=== PATIENT | male | born 1940 | race Caucasian/White ===

== ENCOUNTER → 2018-09-26 | Outpatient (CLI) | payer MEDICARE, OTHER ==
[~2018-09-26] MED LIST: ACET325T21 PO; AMIO200T42 PO; APIX5TAB PO; ASCO100019 PO; ASCO10004 PO; ASPI-621 PO; CARV-39 PO; CARV6.252 PO; CEPH-367 PO; CYAN1TAB39 PO; FURO40TA6 PO; GINK120C PO; GINKO BILOBA PO; GLIM4TAB PO; GLIM4TAB2 PO; GLYB5TAB3 PO; INSU100I28 SQ-INSULIN; INSU100V13 SC; ISOS10TA2 PO; LEVO25TA2 PO; LISI-167 PO; METF10002 PO; MOVE FREE ULTR1 EACH PO; MULT-717 PO; MULT-751 PO; MV-M1TAB35 PO; POTA20TA14 PO; POTA20TA6 PO; PRAV40TA2 PO; PYRI100T2 PO; PYRI100T4 PO; TORS20TA PO; TORS20TA2 PO; UBIQ100C3 PO; VIT1CAPS10 PO; VIT1TAB.9 PO; VITA1TAB68 PO; Will bring list DOS; [UNRECOGNIZED DRUG - CODE] PO
== END | disposition home or self-care (01) ==
LOC: CVU 14:40
PROVIDERS: ATTEND Internal Medicine Cardiovascular Disease
DX: I08.1 Rheumatic disorders of both mitral and tricuspid valves (principal); E78.5 Hyperlipidemia, unspecified; I25.2 Old myocardial infarction; E11.9 Type 2 diabetes mellitus without complications; I11.0 Hypertensive heart disease with heart failure; I50.9 Heart failure, unspecified
CPT/HCPCS: 93306

== ENCOUNTER 2019-01-09 15:02 | Inpatient (IN) | payer MEDICARE, OTHER ==
[~2019-01-09] VITALS: Ht 175.3 cm; Wt 84.2 kg
[~2019-01-09 15:02] MED LIST changes: -ASPI-621 PO; +ASPI81TA45 PO; +OCUVITE SOFTGE1 EACH PO; -VIT1CAPS10 PO
[2019-01-09 15:36] LABS: ALBUMIN 3.1 g/dL (3.4-5.0); ANION GAP 4 mmol/L (5-15); BASOPHILS # (AUTO) 0.07 x10^3/uL (0-0.1); BASOPHILS % (AUTO) 1 % (0-1); CALCIUM 9.6 mg/dL (8.5-10.1); CHLORIDE 107 mmol/L (98-107); EOSINOPHILS # (AUTO) 0.17 x10^3/uL (0-0.4); EOSINOPHILS % (AUTO) 1 % (1-7); LYMPHOCYTES # (AUTO) 2.94 x10^3/uL (1-3.4); LYMPHOCYTES % (AUTO) 20 % (22-44); MD NO; MEAN CORPUSCULAR HEMOGLOBIN 31.9 pg (27.5-34.5); MEAN CORPUSCULAR HGB CONC 32.5 g/dL (33.2-36.2); MEAN CORPUSCULAR VOLUME 98.3 fL (81-97); MEAN PLATELET VOLUME 8.4 fL (7.4-10.4); MONOCYTES # (AUTO) 0.74 x10^3/uL (0.2-0.8); MONOCYTES % (AUTO) 5 % (2-9); NEUTROPHILS # (AUTO) 10.71 x10^3/uL (1.8-6.8); NEUTROPHILS % (AUTO) 73 % (42-75); PLATELET COUNT 200 x10^3/uL (130-400); RED BLOOD COUNT 4.63 x10^6/uL (4.38-5.82); RED CELL DISTRIBUTION WIDTH 17.1 % (9.4-14.8)
[2019-01-09 15:40] LABS: ALANINE AMINOTRANSFERASE 45 U/L (12-78); ALKALINE PHOSPHATASE 105 U/L (45-117); BILIRUBIN,TOTAL 0.9 mg/dL (0.2-1.0); CREATININE 1.35 mg/dL (0.7-1.3); TOTAL PROTEIN 6.6 g/dL (6.4-8.2)
--- NOTE | 2019-01-09 17:00 | NUR ---
PT NOTED TO HAVE WOUNDS WITH ESCAR BILATERAL HEELS. PT WEARING PADED BOOTS. NOTED TO HAVE A WOUND ON EACH BUTTOCK WITH A DRESSING IN PLACE. PT STATES HE HAS A NURSE THAT COMES TO HIS HOUSE AND CLEANS AND DRESSES WOUNDS. PILLOW PLACED UNDER RIGHT HIP TO TAKE PRESSURE OFF BUTTOCKS
[2019-01-09 18:04] LABS: MICROSCOPIC NOT IND
[2019-01-09 18:08] LABS: CULTURE INDICATED? NO
--- NOTE | 2019-01-09 19:49 | NUR ---
PILLOW CHANGED TO UNDER LEFT SIDE. PT USED URINAL AND THEN BACK TO RESTING. AWAITING ROOM ASSIGNMENT
[2019-01-09] MEDS ORDERED: SODIUM CHLORIDE 0.9% 1,000 ML IV ONE (19:55)
--- NOTE | 2019-01-09 20:50 | NUR ---
REPORT TO [facility]. HOSPITALIST AT BEDSIDE Addendum: 01/09/19 at 2050 by [facility] BED REQUESTED. ERROR ENTRY THAT HOSPITALIST AT BEDSIDE. [place] IN [facility] [place] SNA[place]
--- NOTE | 2019-01-09 21:20 | NUR ---
REPORT RECEIVED FROM [facility].
--- NOTE | 2019-01-09 22:21 | NUR ---
report given to lucas paz.
[2019-01-09 22:53] VITALS: BP 126/77
[2019-01-09] MEDS ORDERED: TORS20TA2 PO (23:36)
[2019-01-10] MEDS: APIXABAN 5 MG TABLET PO SCH ×3 (01:00→20:23)
[2019-01-10] MEDS: AMIODARONE 200 MG TABLET PO SCH ×3 (01:00→20:21)
[2019-01-10] MEDS: ISOSORBIDE DINITRATE 10 MG TABLET PO SCH ×4 (01:01→20:22)
[2019-01-10] MEDS: PRAVASTATIN 40 MG TABLET PO SCH ×2 (01:01→20:20)
[2019-01-10] MEDS: MEXILETINE 150 MG CAPSULE PO SCH ×3 (02:22→18:01)
[2019-01-10 03:10] VITALS: BP 115/70
[2019-01-10] MEDS: CARVEDILOL 25 MG TABLET PO SCH ×2 (06:42→18:02)
[2019-01-10] MEDS: LEVOTHYROXINE 75 MCG TABLET PO SCH (06:42)
[2019-01-10] MEDS: TORSEMIDE 20 MG TABLET PO SCH ×2 (08:29→20:23)
[2019-01-10] MEDS: GLIMEPIRIDE 4 MG TABLET PO SCH ×3 (08:29→20:22)
[2019-01-10] MEDS: POTASSIUM CHLORIDE 20 MEQ TAB.ER.PRT PO SCH ×3 (08:29→20:22)
[2019-01-10] MEDS: INSULIN LISPRO 100 UNITS/ML, PEN SQ-INSULIN SCH ×4 (08:29→20:24)
[2019-01-10] MEDS: LISINOPRIL 10 MG TABLET PO SCH (08:31)
[2019-01-10 08:40] VITALS: BP 111/69
[2019-01-10] MEDS: INSULIN GLARGINE 100 UNITS/ML, PEN SQ-INSULIN SCH (09:36)
[2019-01-10 15:08] VITALS: BP 113/68
[2019-01-10] MEDS ORDERED: DOCUSATE 100 MG CAPSULE PO PRN (17:30)
[2019-01-10] MEDS: BISACODYL 10 MG SUPP PR PRN (18:02)
[2019-01-10 18:48] VITALS: BP 161/83
[2019-01-10] MEDS: ACETAMINOPHEN 325 MG TABLET PO PRN (20:26)
[2019-01-10] MEDS: ZOLPIDEM 5MG TABLET PO PRN (21:35)
[2019-01-11] VITALS (9 sets, daily range): BP systolic 141–168; BP diastolic 77–95
[2019-01-11] MEDS: MEXILETINE 150 MG CAPSULE PO SCH ×5 (00:46→20:57)
[2019-01-11] MEDS: ACETAMINOPHEN 325 MG TABLET PO PRN ×2 (00:51→10:21)
[2019-01-11 01:44] LABS: TROPONIN I 0.059 ng/mL (0.000-0.045)
[2019-01-11] MEDS ORDERED: NITROGLYCERIN 0.4 MG/SPRAY SL PRN (04:30)
[2019-01-11] MEDS ORDERED: NITROGLYCERIN 0.4 MG BOTTLE (25 TABS) SL PRN (04:30)
[2019-01-11] MEDS: CARVEDILOL 25 MG TABLET PO SCH ×2 (05:41→16:09)
[2019-01-11] MEDS: LEVOTHYROXINE 75 MCG TABLET PO SCH (05:41)
[2019-01-11 06:01] LABS: TROPONIN I 0.094 ng/mL (0.000-0.045)
[2019-01-11 06:45] LABS: ALANINE AMINOTRANSFERASE 60 U/L (12-78); ANION GAP 8 mmol/L (5-15); CALCIUM 9.2 mg/dL (8.5-10.1); CHLORIDE 109 mmol/L (98-107); CREATININE 1.38 mg/dL (0.7-1.3)
[2019-01-11 06:48] LABS: ALKALINE PHOSPHATASE 105 U/L (45-117); BILIRUBIN,TOTAL 1.1 mg/dL (0.2-1.0); TOTAL PROTEIN 6.7 g/dL (6.4-8.2)
[2019-01-11] MEDS: INSULIN LISPRO 100 UNITS/ML, PEN SQ-INSULIN SCH ×4 (07:00→19:56)
[2019-01-11 07:57] LABS: TROPONIN I 0.084 ng/mL (0.000-0.045)
[2019-01-11] MEDS ORDERED: PANTOPRAZOLE 40 MG IV IVPush SCH (08:30)
[2019-01-11] MEDS: ONDANSETRON ODT 4 MG PO PRN ×3 (08:33→19:52)
[2019-01-11] MEDS: INSULIN GLARGINE 100 UNITS/ML, PEN SQ-INSULIN SCH (09:00)
[2019-01-11] MEDS ORDERED: POTASSIUM CHLORIDE 20 MEQ TAB.ER.PRT PO SCH (09:00)
[2019-01-11] MEDS: POTASSIUM CHLORIDE 30 MEQ in SODIUM CHLORIDE 0.45% 1,000 ML IV SCH ×2 (09:07→17:44)
[2019-01-11] MEDS: TORSEMIDE 20 MG TABLET PO SCH ×2 (10:16→20:56)
[2019-01-11] MEDS: AMIODARONE 200 MG TABLET PO SCH ×2 (10:16→20:56)
[2019-01-11] MEDS: ISOSORBIDE DINITRATE 10 MG TABLET PO SCH ×3 (10:16→20:57)
[2019-01-11] MEDS: APIXABAN 5 MG TABLET PO SCH ×2 (10:16→20:57)
[2019-01-11] MEDS: LISINOPRIL 10 MG TABLET PO SCH (10:20)
[2019-01-11 13:20] LABS: TROPONIN I 0.099 ng/mL (0.000-0.045)
[2019-01-11] MEDS: PANTOPROZOLE 40MG TABLET PO SCH (16:14)
[2019-01-11] MEDS: MAGNESIUM CITRATE 300ML ORAL SOL PO PRN ×2 (16:58→21:58)
[2019-01-11] MEDS: PRAVASTATIN 40 MG TABLET PO SCH (20:57)
[2019-01-11] MEDS: ZOLPIDEM 5MG TABLET PO PRN (23:01)
[2019-01-12] VITALS (11 sets, daily range): BP systolic 86–120; BP diastolic 31–90
[2019-01-12] MEDS: POTASSIUM CHLORIDE 30 MEQ in SODIUM CHLORIDE 0.45% 1,000 ML IV SCH ×2 (03:50→14:23)
[2019-01-12] MEDS: CARVEDILOL 25 MG TABLET PO SCH (05:27)
[2019-01-12] MEDS: MEXILETINE 150 MG CAPSULE PO SCH ×3 (05:27→22:32)
[2019-01-12] MEDS: PANTOPROZOLE 40MG TABLET PO SCH (05:27)
[2019-01-12] MEDS: LEVOTHYROXINE 75 MCG TABLET PO SCH (05:27)
[2019-01-12 06:14] LABS: MEAN CORPUSCULAR HEMOGLOBIN 32.7 pg (27.5-34.5); MEAN CORPUSCULAR HGB CONC 33.2 g/dL (33.2-36.2); MEAN CORPUSCULAR VOLUME 98.3 fL (81-97); MEAN PLATELET VOLUME 8.2 fL (7.4-10.4); PLATELET COUNT 159 x10^3/uL (130-400); RED BLOOD COUNT 4.11 x10^6/uL (4.38-5.82); RED CELL DISTRIBUTION WIDTH 16.9 % (9.4-14.8)
[2019-01-12 06:16] LABS: ALANINE AMINOTRANSFERASE 388 U/L (12-78); ALBUMIN 2.4 g/dL (3.4-5.0); ANION GAP 5 mmol/L (5-15); CHLORIDE 108 mmol/L (98-107); CREATININE 1.38 mg/dL (0.7-1.3)
[2019-01-12 06:18] LABS: ALKALINE PHOSPHATASE 249 U/L (45-117); BILIRUBIN,TOTAL 4.3 mg/dL (0.2-1.0); TOTAL PROTEIN 5.7 g/dL (6.4-8.2)
[2019-01-12 06:42] LABS: MD YES
[2019-01-12 06:43] LABS: MONOS#(MANUAL) 1.04 x10^3/uL (0.3-2.7); MONOS% (MANUAL) 4 % (2-9)
[2019-01-12 06:44] LABS: <PLATELET ESTIMATE> ADEQUATE; <PLT MORPHOLOGY> NORMAL PLT MORPH; <RBC MORPHOLOGY> NORMAL; BAND#(MANUAL) 0.26 x10^3/uL; BANDS%(MANUAL) 1 % (0-7); LYMPHS% (MANUAL) 15 % (22-44); SEGS% (MANUAL) 80 % (42-75)
[2019-01-12] MEDS: INSULIN GLARGINE 100 UNITS/ML, PEN SQ-INSULIN SCH (09:27)
[2019-01-12] MEDS: INSULIN LISPRO 100 UNITS/ML, PEN SQ-INSULIN SCH ×4 (09:28→20:54)
[2019-01-12] MEDS: AMIODARONE 200 MG TABLET PO SCH ×2 (09:29→20:53)
[2019-01-12] MEDS: ISOSORBIDE DINITRATE 10 MG TABLET PO SCH (09:29)
[2019-01-12] MEDS: APIXABAN 5 MG TABLET PO SCH ×2 (09:30→20:53)
[2019-01-12] MEDS: TORSEMIDE 20 MG TABLET PO SCH (09:30)
[2019-01-12] MEDS: LISINOPRIL 10 MG TABLET PO SCH (09:31)
[2019-01-12] MEDS: BISACODYL 10 MG SUPP PR PRN (14:23)
[2019-01-12] MEDS ORDERED: SODIUM CHLORIDE 0.9%, 500ML IVBOLUS ONE (15:00)
[2019-01-12] MEDS ORDERED: CEFTRIAXONE PMX 2GM/50ML 50 ML IV SCH (18:00)
[2019-01-12] MEDS ORDERED: CARVEDILOL 25 MG TABLET PO SCH (18:00)
[2019-01-12] MEDS: PRAVASTATIN 40 MG TABLET PO SCH (20:52)
[2019-01-12 22:05] LABS: CULTURE INDICATED? YES; MICROSCOPIC INDICATED
[2019-01-13 00:08] VITALS: BP 120/90
[2019-01-13] MEDS: ACETAMINOPHEN 325 MG TABLET PO PRN (00:14)
[2019-01-13] MEDS ORDERED: ISOSORBIDE DINITRATE 10 MG TABLET PO SCH (09:00)
[2019-01-13] MEDS ORDERED: LISINOPRIL 5 MG TABLET PO SCH ×2 (09:00)
== END 2019-01-13 02:02 | disposition expired | DRG 444 ==
LOC: ED 16:25 → EDIP 19:55 → 4NOR 22:51 → 5SO 01-11 04:09
PROVIDERS: ADMIT Internal Medicine; ATTEND Internal Medicine
PROC: 0T9B70Z Drainage of Bladder with Drainage Device, Via Natural or Artificial Opening (ICD-10-PCS; principal; 2019-01-12)
DX: K81.0 Acute cholecystitis (principal); R53.2 Functional quadriplegia; I42.9 Cardiomyopathy, unspecified; I47.2 Ventricular tachycardia; I50.9 Heart failure, unspecified; D63.8 Anemia in other chronic diseases classified elsewhere; E03.9 Hypothyroidism, unspecified; E11.42 Type 2 diabetes mellitus with diabetic polyneuropathy; E11.65 Type 2 diabetes mellitus with hyperglycemia; E78.5 Hyperlipidemia, unspecified; E87.6 Hypokalemia; I11.0 Hypertensive heart disease with heart failure; I25.10 Atherosclerotic heart disease of native coronary artery without angina pectoris; I48.0 Paroxysmal atrial fibrillation; L89.322 Pressure ulcer of left buttock, stage 2; L89.312 Pressure ulcer of right buttock, stage 2; L89.620 Pressure ulcer of left heel, unstageable; L89.610 Pressure ulcer of right heel, unstageable; K59.00 Constipation, unspecified; N28.9 Disorder of kidney and ureter, unspecified; N40.0 Benign prostatic hyperplasia without lower urinary tract symptoms; I46.9 Cardiac arrest, cause unspecified; R62.7 Adult failure to thrive; Z66 Do not resuscitate; Z74.01 Bed confinement status; Z99.3 Dependence on wheelchair; Z95.810 Presence of automatic (implantable) cardiac defibrillator; Z87.11 Personal history of peptic ulcer disease; Z87.891 Personal history of nicotine dependence; Z80.0 Family history of malignant neoplasm of digestive organs; Z82.49 Family history of ischemic heart disease and other diseases of the circulatory system; Z83.3 Family history of diabetes mellitus
CPT/HCPCS: 36415; 74018; 76705; 80053; 81001; 81003; 82150; 82962; 83735; 84100; 84484; 85025; 87040; 87086; 93005; 99285; G0378; J0696; J3480; Q0162; C9113; J1815; J7040